=== PATIENT | female | born 1950 | race Hispanic/Latino ===

== ENCOUNTER 2024-02-06 15:32 | Observation (INO) | payer OTHER ==
[~2024-02-06] VITALS: Ht 157.5 cm; Wt 76.9 kg
[2024-02-06 16:50] LABS: INR 1.25 (0.85-1.15); PROTHROMBIN TIME 14.5 SEC (9.6-11.6)
[2024-02-06 16:52] LABS: PARTIAL THROMBOPLASTIN TIME 28.3 SEC (26.3-35.5); POTASSIUM 3.1 mmol/L (3.5-5.1)
[2024-02-06 16:53] LABS: BASOPHILS # (AUTO) 0.06 K/uL (0.00-0.20); BASOPHILS % (AUTO) 0.4 % (0.0-5.0); EOSINOPHILS # (AUTO) 0.01 K/uL (0.00-0.70); EOSINOPHILS % (AUTO) 0.1 % (0.0-8.0); HEMATOCRIT 33.6 % (36-48); IMMATURE GRANULOCYTE ABSOLUTE 0.22 K/uL (0-1); LYMPHOCYTES # (AUTO) 1.4 K/uL (1.0-4.8); MEAN CORPUSCULAR HEMOGLOBIN 31.3 pg (27.0-33.0); MEAN CORPUSCULAR HGB CONC 33.6 g/dL (32.0-36.0); MEAN CORPUSCULAR VOLUME 93.1 fL (79-99); MONOCYTES % (AUTO) 6.8 % (3.0-13.0); NEUTROPHILS # (AUTO) 12.4 K/uL (1.8-7.7); NEUTROPHILS % (AUTO) 82.2 % (40.0-77.0); PLATELET COUNT (AUTO) 155 K/uL (130-400); RED BLOOD CELL COUNT(AUTO) 3.61 MIL/uL (4.00-5.50); RED CELL DISTRIBUTION WIDTH 14.4 % (11.0-15.5)
[2024-02-06 17:01] LABS: BILIRUBIN,TOTAL 0.6 mg/dL (0.2-1.0); TOTAL PROTEIN, SERUM 8.3 g/dL (6.0-8.3)
[2024-02-06] MEDS: 0.9%NACL 1000ML 1,503 ML IV ONE (17:03)
[2024-02-06 17:23] LABS: BAND NEUTROPHILS % (MANUAL) 26 % (0-2); LYMPHOCYTES % (MANUAL) 17 % (22-44); MAN.DIFF COMMENT-IMPRESSION MANUAL DIFFERENTIAL; MONOCYTES % (MANUAL) 5 % (2-9); PLATELET MORPHOLOGY COMMENT ADEQUATE; SEGMENTED NEUTROPHILS % 52 % (40-70); TOTAL CELLS COUNTED 100; WBC MORPHOLOGY CONSISTENT W/DIFF
[2024-02-06 17:46] LABS: SARS-CoV-2, RNA, NAAT NEGATIVE SARS CoV-2 (NEGATIVE)
[2024-02-06 17:51] LABS: INFLUENZA TYPE A Negative For Type A (NEGATIVE); INFLUENZA TYPE B Negative For Type B (NEGATIVE)
[2024-02-06 19:15] LABS: APPEARANCE,URINE CLEAR (CLEAR); BILIRUBIN,URINE NEGATIVE (NEGATIVE); COLOR,URINE LIGHT-YELLOW (YELLOW); GLUCOSE, URINE (UA) NEGATIVE (NEGATIVE); KETONES,URINE NEGATIVE (NEGATIVE); LEUKOCYTE ESTERASE ,URINE NEGATIVE Leu/uL (NEGATIVE); NITRATE,URINE NEGATIVE (NEGATIVE); OCCULT BLOOD,URINE SMALL (NEGATIVE); PROTEIN,URINE 50 mg/dL (NEGATIVE); UROBILINOGEN,URINE 0.2 mg/dL (0.2-1.0)
[2024-02-06 19:16] LABS: ADD UA MICROSCOPIC YES
[2024-02-06 19:19] LABS: MUCUS,URINE RARE LPF (None Seen); SQUAMOUS EPITHELIAL CELL,UR RARE /HPF (0-2); WBC,URINE 0-1 /HPF (0-1)
[2024-02-06] MEDS ORDERED: ACETAMINOPHEN 325 MG TAB PO PRN (21:30)
[2024-02-06] MEDS ORDERED: ALBUTEROL 0.083% 2.5 MG/3 ML INH IH PRN (21:30)
[2024-02-06] MEDS ORDERED: ACETAMINOPHEN 650 MG SUPPOSITORY RC PRN (21:30)
[2024-02-06] MEDS: LACTATED RINGERS 1000ML 1,000 ML IV SCH (21:55)
[2024-02-06] MEDS: CEFTRIAXONE 2GM VIAL IVPB ONE (21:55)
[2024-02-06] MEDS: AZITHROMYCIN 500MG+NS 250ML IV SCH (22:21)
[2024-02-07 01:14] VITALS: PULSE 68; RESP 20; O2SAT 95
[2024-02-07 05:34] LABS: BASOPHILS # (AUTO) 0.03 K/uL (0.00-0.20); BASOPHILS % (AUTO) 0.3 % (0.0-5.0); EOSINOPHILS # (AUTO) 0.01 K/uL (0.00-0.70); EOSINOPHILS % (AUTO) 0.1 % (0.0-8.0); HEMATOCRIT 28.4 % (36-48); IMMATURE GRANULOCYTE ABSOLUTE 0.09 K/uL (0-1); LYMPHOCYTES # (AUTO) 2.8 K/uL (1.0-4.8); LYMPHOCYTES % (AUTO) 25.9 % (21.0-51.0); MEAN CORPUSCULAR HEMOGLOBIN 31.5 pg (27.0-33.0); MEAN CORPUSCULAR HGB CONC 34.5 g/dL (32.0-36.0); MEAN CORPUSCULAR VOLUME 91.3 fL (79-99); MONOCYTES # (AUTO) 1.2 K/uL (0.1-1.0); MONOCYTES % (AUTO) 11.6 % (3.0-13.0); NEUTROPHILS # (AUTO) 6.5 K/uL (1.8-7.7); NEUTROPHILS % (AUTO) 61.3 % (40.0-77.0); PLATELET COUNT (AUTO) 130 K/uL (130-400); RED BLOOD CELL COUNT(AUTO) 3.11 MIL/uL (4.00-5.50); RED CELL DISTRIBUTION WIDTH 14.2 % (11.0-15.5); WHITE BLOOD COUNT (AUTO) 10.7 K/uL (4.8-10.8)
[2024-02-07 05:55] LABS: CREATININE 0.7 mg/dL (0.5-1.0); MAGNESIUM 1.8 mg/dL (1.80-2.40); PHOSPHORUS 2.7 mg/dL (2.5-4.9); POTASSIUM 3.1 mmol/L (3.5-5.1)
[2024-02-07 07:51] VITALS: PULSE 74; RESP 20; O2SAT 97
[2024-02-07] MEDS: POLYETHYLENE GLYCOL 3350 17 GM POWD.PACK PO SCH (09:10)
[2024-02-07] MEDS: ENOXAPARIN SODIUM 40 MG/0.4 ML SYRINGE SQ SCH (09:11)
[2024-02-07] MEDS: THIAMINE HCL 100 MG TABLET PO SCH (09:11)
[2024-02-07 15:40] VITALS: BP 157/65; PULSE 77; RESP 20
[2024-02-07] MEDS ORDERED: LISI10TA24 PO (16:04)
[2024-02-07 16:06] VITALS: O2SAT 97
[2024-02-07 20:00] VITALS: BP 158/71; PULSE 74; RESP 18; O2SAT 97
[2024-02-07] MEDS: FAMOTIDINE 20MG TAB PO SCH (20:55)
[2024-02-07] MEDS: CEFTRIAXONE 1G VIAL IV SCH (20:55)
[2024-02-08] VITALS: BP 152/62; PULSE 85; RESP 18
[2024-02-08 03:59] VITALS: BP 163/84; PULSE 88; RESP 18
[2024-02-08 06:53] LABS: MEAN CORPUSCULAR HGB CONC 34.3 g/dL (32.0-36.0); MEAN CORPUSCULAR VOLUME 90.4 fL (79-99); RED BLOOD CELL COUNT(AUTO) 3.32 MIL/uL (4.00-5.50); RED CELL DISTRIBUTION WIDTH 14.4 % (11.0-15.5); WHITE BLOOD COUNT (AUTO) 7.2 K/uL (4.8-10.8)
[2024-02-08 07:12] LABS: CREATININE 0.7 mg/dL (0.5-1.0); POTASSIUM 3.3 mmol/L (3.5-5.1)
[2024-02-08 07:55] VITALS: BP 162/80; PULSE 75; RESP 17
[2024-02-08 08:00] VITALS: O2SAT 97
[2024-02-08] MEDS: KCL 20 MEQ ERTAB PO SCH (09:00)
[2024-02-08] MEDS ORDERED: LEVO750T68 PO (10:42)
[2024-02-08 10:58] VITALS: BP 153/66; PULSE 73; RESP 16
== END 2024-02-08 11:40 | disposition home or self-care (01) ==
LOC: EDH 15:32 → EDHIP 21:30 → WSH 02-07 15:06
PROVIDERS: ADMIT Internal Medicine Critical Care Medicine; ATTEND Internal Medicine Critical Care Medicine
DX: D72.829 Elevated white blood cell count, unspecified (principal); Z20.822 Contact with and (suspected) exposure to COVID-19; J06.9 Acute upper respiratory infection, unspecified; R65.10 Systemic inflammatory response syndrome (SIRS) of non-infectious origin without acute organ dysfunction; I10 Essential (primary) hypertension; E87.1 Hypo-osmolality and hyponatremia; E87.6 Hypokalemia; Z63.4 Disappearance and death of family member; Z79.899 Other long term (current) drug therapy
CPT/HCPCS: 96361 ×2; 96365; 96366 ×3; 96368; 99284; 82550; 84484; 80053; 83880; 85025 ×2; 85610; 85730; 87040 ×2; 87088; 87804 ×2; 83605; 81001; 36415 ×3; 87635; 71045; 96376; 96372 ×2; 83735; 84100; 80048 ×2; 82948; 84145 ×2; 85027; G0378 ×38; J7120 ×4; J0696 ×2; J0456 ×2; J1650 ×2

== ENCOUNTER 2024-09-01 15:19 | Emergency (ER) | payer OTHER ==
[~2024-09-01] VITALS: Ht 157.5 cm; Wt 72.6 kg
[~2024-09-01 15:19] MED LIST: LEVO750T68 PO; LISI10TA24 PO
[2024-09-01] MEDS ORDERED: ACET-66 PO (17:39)
[2024-09-01 17:56] VITALS: BP 152/84; PULSE 78; RESP 16; TEMP 97.4; O2SAT 97
== END 2024-09-01 18:02 | disposition home or self-care (01) ==
LOC: EDH 15:19
DX: S09.8XXA Other specified injuries of head, initial encounter (principal); I10 Essential (primary) hypertension; Z79.899 Other long term (current) drug therapy; Z90.49 Acquired absence of other specified parts of digestive tract; W20.8XXA Other cause of strike by thrown, projected or falling object, initial encounter; Y93.89 Activity, other specified; Y92.89 Other specified places as the place of occurrence of the external cause; Y99.8 Other external cause status
CPT/HCPCS: 70450